=== PATIENT | female | born 1930 | race Caucasian/White ===

== ENCOUNTER 2018-04-17 13:06 | Day surgery (SDC) | payer MEDICARE, OTHER ==
--- NOTE | 2018-04-17 13:28 | ED ---
Throat Pain/Nasal Congestion - HPI Summary HPI Summary: The pt is a 88 y.o female with a chief complaint of obstruction in the esophageal tract. The pt states that she ate a cube of bread which she dipped in juice and it was unable to pass through the esophagus without complication and currently has a difficult time swallowing. In her description of her past PMHx she describes she has multiple endoscopies and stated they found stricture in her esophagus 3 weeks ago. She has not had any fluid intake and is not swallowing saliva. The patient rates the pain 8/10 in severity. Symptoms aggravated by nothing. Symptoms alleviated by nothing. She reports a coughing. - History of Current Complaint Time Seen by Provider: 04/17/18 13:10 Hx Obtained From: Patient Onset/Duration: Sudden Onset Severity: Severe Associated Signs And Symptoms: Positive: Negative Cough: Nonproductive - Allergies/Home Medications Allergies/Adverse Reactions: Allergies Allergy/AdvReac Type Severity Reaction Status Date / Time No Known Allergies Allergy Verified 04/17/18 13:17 PMH/Surg Hx/FS Hx/Imm Hx Endocrine/Hematology History: Reports: Hx Thyroid Disease Cardiovascular History: Reports: Hx Atrial Fibrillation, Hx Hypertension GI History: Reports: Other GI Disorders - MULTIPLE ESOPHAGEAL DILATION, LAST ONE 2011 Musculoskeletal History: Reports: Hx Arthritis - RIGHT KNEE, Hx Osteoporosis Denies: Hx Rheumatoid Arthritis Sensory History: Reports: Hx Contacts or Glasses - GLASSES Denies: Hx Hearing Aid Opthamlomology History: Reports: Hx Contacts or Glasses - GLASSES - Cancer History Hx Chemotherapy: No Hx Radiation Therapy: No - Surgical History Surgery Procedure, Year, and Place: BILATERAL FOOT SURGERY, [id number] LEFT KNEE TOTAL REPLACEMENT, [facility] STRICT[facility] WITH DILATION 7-8 TIMES, [id number] BILATERAL CATARACT EXTRACTION WITH IOL IMPLANTS, [facility] Hx Anesthesia Reactions: No Infectious Disease History: No Infectious Disease History: Denies: Traveled Outside the [place] in Last 30 Days - Family History Known Family History: Positive: None Family History: R & N/C - Social History Alcohol Use: Occasionally Hx Substance Use: No Substance Use Type: Reports: None Hx Tobacco Use: No Smoking Status (MU): Never Smoked Tobacco Review of Systems Constitutional: Negative Eyes: Negative ENT: Other - Obstruction in Throat Cardiovascular: Negative Positive: Cough Gastrointestinal: Negative Genitourinary: Negative Musculoskeletal: Negative Skin: Negative Neurological: Negative Psychological: Normal All Other Systems Reviewed And Are Negative: Yes Physical Exam - Summary Physical Exam Summary: Appearance: The patient is well-nourished and uncomfortable Skin: The skin is warm and dry and skin color reflects adequate perfusion. HEENT: The head is normocephalic and atraumatic. The pupils are equal and reactive. The conjunctivae are clear and without drainage. Nares are patent and without drainage. Mouth reveals moist mucous membranes and the throat is without erythema and exudate. The external ears are intact. The ear canals are patent and without drainage. The tympanic membranes are intact. Neck: The neck is supple with full range of motion and non-tender. There are no carotid bruits. There is no neck vein distension. Respiratory: Chest is non-tender. Lungs are clear to auscultation and breath sounds are symmetrical and equal. Cardiovascular: Heart is regular rate and rhythm. There is no murmur or rub auscultated. There is no peripheral edema and pulses are symmetrical and equal. Abdomen: The abdomen is soft and non-tender. There are normal bowel sounds heard in all four quadrants and there is no organomegaly palpated. Musculoskeletal: There is no back tenderness noted. Extremities are non-tender with full range of motion. There is good capillary refill. There is no peripheral edema or calf tenderness elicited. Neurological: Patient is alert and oriented to person, place and time. The patient has symmetrical motor strength in all four extremities. Cranial nerves are grossly intact. Deep tendon reflexes are symmetrical and equal in all four extremities. Psychiatric: The patient has an appropriate affect and does not exhibit any anxiety or depression Triage Information Reviewed: Yes Vital Signs On Initial Exam: Initial Vitals Temp Pulse Resp BP Pulse Ox 99.2 F 83 14 168/95 97 04/17/18 13:12 04/17/18 13:12 04/17/18 13:12 04/17/18 13:12 04/17/18 13:12 Vital Signs Reviewed: Yes Diagnostics - Vital Signs Vital Signs Temp Pulse Resp BP Pulse Ox 04/17/18 13:12 99.2 F 83 14 168/95 97 - Laboratory Lab Statement: Any lab studies that have been ordered have been reviewed, and results considered in the medical decision making process. EENT Course/Dx - Course Course Of Treatment: Ms. Darnell ate a cube of bread dipped and grape juice in [place] this morning. This was about 2 hours ago and she has been unable to swallow her secretions since. She tried drinking some water and was unable to get that down she points to her sternal notch where she feels a foreign body. Three weeks ago she had an appointment with Dr. Jha and had an EGD. She was found to have a stricture and when asked where she again points to her sternal notch. Dr. Peter was contacted and recommended glucagon and he would come in to see her. Prior to getting her medication she did swallow the object and was able to drink water. Dr. Peter did come see her anyway and took her to the OR for possible stretching of the strictures. - Diagnoses Provider Diagnoses: Esophageal foreign body Discharge - Sign-Out/Discharge Documenting (check all that apply): Patient Departure - Discharge Plan Condition: Stable Disposition: HOME - Billing Disposition and Condition Condition: STABLE Disposition: Home - Attestation Statements Document Initiated by Scribe: Yes Documenting Scribe: Ketan Marvin Provider For Whom Scribe is Documenting (Include Credential): Dr. Gustavo Martinez Scribe Attestation: Ketan Bustos scribed for Dr. Gustavo Martinez on 04/17/18 at 1809. Scribe Documentation Reviewed: Yes Provider Attestation: The documentation as recorded by the Ketan holcomb accurately reflects the service I personally performed and the decisions made by , Dr. Gustavo Martinez
[2018-04-17] MEDS ORDERED: Glucagon* 1 MG VIAL IV ONE (13:45)
[2018-04-17] MEDS ORDERED: Ondansetron INJ* 2 MG/ML VIAL ONE (14:53)
[2018-04-17] MEDS ORDERED: Lidocaine 2% PF * 5 ML VIAL ONE (14:53)
[2018-04-17] MEDS ORDERED: Mivacurium Chloride* 20 MG/10 ML VIAL IV ONE (14:53)
[2018-04-17] MEDS ORDERED: fentaNYL* 50 MCG/ML 2 ML VIAL (100 MCG VIAL) ONE (14:53)
[2018-04-17] MEDS ORDERED: Dexamethasone IV* 4 MG/ML 1 ML (4 MG) ONE (14:53)
[2018-04-17] MEDS ORDERED: Propofol* 10 MG/ML 20 ML BTL IV PUSH ONE (14:53)
[2018-04-17] MEDS ORDERED: Phenylephrine INJ* 10 MG/ML 1 ML VIAL (10 MG) ONE (14:54)
[2018-04-17] MEDS ORDERED: Midazolam* 1 MG/ML 5 ML VIAL (5 MG) ONE (14:54)
[2018-04-17] MEDS ORDERED: EPHEDrine (Pressors)* 50 MG/ML VIAL ONE (15:35)
[2018-04-17] MEDS ORDERED: Ondansetron INJ* 2 MG/ML VIAL IV PRN (16:06)
[2018-04-17] MEDS ORDERED: Naloxone* 0.4 MG/ML 1 ML VIAL IV PRN (16:06)
[2018-04-17 17:02] VITALS: BP 138/90
--- NOTE | 2018-04-17 21:25 | CONS ---
CONSULTATION REPORT: DATE OF CONSULT: 04/17/18 REASON FOR CONSULT: Food impaction, dysphagia. HISTORY OF PRESENT ILLNESS: This is an 88-year-old female with a history of esophageal stricture with dilation 3 to [address] Jha, who presents with food impaction after eating a kibble bread in [place] at 11 a.m. this morning. She has poor dentition and has been very watchful of what she is eating and tries to chew her food extremely well and place it into small bites. She had recent dilatation 3 weeks ago of 3 esophageal strictures in the proximal, mid and lower portion of the esophagus respectively. The first one was dilated with the scope, the second one was dilated with a CRE balloon. It was felt that at this point she had had a significant dilatation and to bring her back further for repeat dilation in the future. She states that intermittently she has had this problem, more solids than liquids. Liquids and ice cream seem to go down without any issue. She does avoid meats like steak and chicken because of this dysphagia. When the ER had notified me about an hour ago she was unable to handle her secretions, since that time it appears that she is able to currently swallow. She was given glucagon in the ER with some effect. She denies any odynophagia. No black or blood in the stool or hematochezia. No diarrhea, constipation. No abdominal pain. Her weight has been stable per the patient. The remainder of the 14-point review of systems is grossly negative. PAST MEDICAL HISTORY: Thyroid disease, atrial fibrillation, and esophageal strictures. PAST SURGICAL HISTORY: EGD with dilation, multiple, last 3 to [address] Jha; bilateral foot surgery; left total knee replacement; and bilateral cataract surgery. ALLERGIES: No known drug allergies. FAMILY HISTORY: No known GI cancers or IBD. SOCIAL HISTORY: Occasional alcohol use. No tobacco use. REVIEW OF SYSTEMS: Remainder of the 14-point review of systems was grossly negative. PHYSICAL EXAM: Vital Signs: Blood pressure was 154/83, pulse is 74, respiratory rate of 16, and she is 94% on room air. In general, she is alert and oriented x3, in no acute distress. HEENT: Atraumatic, normocephalic. Pupils are equal, round, reactive to light. Extraocular movements are intact. Conjunctivae are pink. Sclerae are anicteric. Her oral cavity reveals poor dentition on the lower end with a partial up top. Neck is supple. Trachea midline. Cardiovascular: Regular rate and rhythm. S1, S2. Respiratory: Clear to auscultation bilaterally. Abdomen: Soft, nontender, nondistended. Bowel sounds positive. Extremities: No clubbing, no cyanosis, no edema. Neuro exam is nonfocal. Skin Exam: There are a few scattered ecchymoses. The remainder is negative. ASSESSMENT AND PLAN: This is an 88-year-old female with multiple esophageal strictures with recurrent dilation. Food impaction with history of esophageal strictures. We will plan on EGD today. It appears that the bolus may have passed; however, she still is frequently clearing her throat and we discussed watchful waiting versus esophagogastro-duodenoscopy today and the patient would prefer to have EGD with dilation today for more definitive therapy. I will do this case with anesthesia to protect her airway given the proximal nature of her strictures. I discussed the risks and benefits of the procedure with the patient including, but not limited to perforated, missed lesions, anesthesia complications, infection and/or , and the patient is agreeable to proceeding. We will plan on EGD with possible dilation today. [id number]/[facility] #: [id number] MARLI
--- NOTE | 2018-04-18 03:07 | PRO ---
CC: Dr. Jha; Dr. Reed. * DATE OF PROCEDURE: 04/17/18 - [facility] INDICATION FOR PROCEDURE: Dysphagia; possible foreign body, bread. PROCEDURE PERFORMED: Esophagogastroduodenoscopy with dilation. MEDICATIONS GIVEN: Please see anesthesia record. DESCRIPTION OF PROCEDURE: After the EGD procedure including the risks, benefits , and alternatives with the risks not limited to perforation, surgery, missed lesions, and/or were explained to the patient. Written consent was then obtained, IV medication was given and a bite block was placed between the teeth. The IV medication was given by the anesthesia service. An XP Olympus gastroscope was then inserted into the patient's mouth, advanced through the upper esophageal sphincter just past the upper esophageal sphincter. There was some narrowing with hyperemia to this area. No retained food was visualized. The XP scope was able to traverse this area well. As I proceeded further down the esophagus roughly 22 cm there was an additional area of narrowing, but the XP scope was again able to be passed through there without issue. Going distally to this, the remainder of the esophagus was slightly tortuous but did not have much of a focal narrowing. I was able to traverse the lower esophageal sphincter into the stomach, there were some retained food contents in the stomach that limited the view but the mucosa that was visualized was grossly normal in appearance. The scope was advanced through the widely patent pylorus into the duodenal bulb to see a loop in the distal duodenum which was normal in appearance. The scope was then removed. Now that we had completed visualization of the entire esophagus, and the multiple strictures, and the adult Olympus gastroscope was then introduced. I was able to pass the upper esophageal stricture just past the ileus with mild gentle pressure through the area of hyperemia. The area at 22 cm seemed to be the more narrow and strictured. I was able to dilate this through the scope CRE balloon dilation first at 8 mm, then at 9 mm, and finally all the way to 10 mm and I did get a good rent through this area. I was then able to traverse the adult scope past this area with minimal effort. The scope was then removed from the patient, she tolerated the procedure well and she returned to the recovery room in stable condition. IMPRESSION: 1. EGD with CRE/TTS balloon dilation of esophageal stricture at 22 cm. 2. Mild dilation of the proximal upper esophageal stricture with the adult gastroscope. 3. Poor dentition as has been noted on previous endoscopy. RECOMMENDATIONS: At this time advised her to chew her food extremely well to avoid large solid pieces of food, liquids will certainly be better. She can follow up with her primary carton making machinist Dr. Jha in 2 to 3 weeks to see if further dilation may be warranted depending on her symptomatology. I also advised her to hasten her dental appointment as soon as possible so that she can get a better lower teeth to help her chew her food appropriately. In the meantime continue to cut her food in extremely small pieces. If needed a pureed diet could also be done. [id number]/[facility] #: [id number] MTDD
== END 2018-04-17 17:30 | disposition home or self-care (01) ==
LOC: ED 13:06 → OR 14:56
PROVIDERS: ATTEND Internal Medicine Gastroenterology
DX: R13.14 Dysphagia, pharyngoesophageal phase (principal); K22.2 Esophageal obstruction; I48.91 Unspecified atrial fibrillation; I10 Essential (primary) hypertension; E03.9 Hypothyroidism, unspecified; M19.90 Unspecified osteoarthritis, unspecified site; E78.5 Hyperlipidemia, unspecified; M81.0 Age-related osteoporosis without current pathological fracture
CPT/HCPCS: 96374; 99283; J1100; J2250; J2405; J2704; J3010